=== PATIENT | male | born 1970 | race Hispanic/Latino ===

== ENCOUNTER 2021-07-13 21:53 | Inpatient (IN) | payer SELFPAY ==
[2021-07-14] MEDS ORDERED: INSULIN REGULAR, HUMAN 100 UNITS/1 ML IV STA (04:51)
[2021-07-14] MEDS ORDERED: SODIUM CHLORIDE 0.9% 1000 ML 1,000 ML IV ONE ×3 (04:51→06:34)
[2021-07-14 05:15] LABS: Hematocrit 44.9 % (35.5-45.6); Hemoglobin 15.2 gm/dl (11.8-15.2); Mean Corpuscular HGB Conc 34 % (32-34); Mean Corpuscular Volume 91 fl (84-94); Platelet Count 240 K/mm3 (140-440); Red Blood Count 4.92 M/mm3 (3.65-5.03); Red Cell Distribution Width 14.2 % (13.2-15.2)
[2021-07-14 05:49] LABS: Alanine Aminotransferase 16 units/L (7-56); Albumin 3.9 g/dL (3.9-5); BUN/Creatinine Ratio 17; Blood Urea Nitrogen 20 mg/dL (9-20); Calcium 8.7 mg/dL (8.4-10.2); Hemolysis Index 2
[2021-07-14] MEDS ORDERED: DEXTROSE 50% IN WATER (25GM) 50 ML SYRINGE IV PRN ×2 (06:20→06:34)
--- NOTE | 2021-07-14 06:26 | Emergency Department Report ---
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 Ports no fever, chills, sweats. No hemoptysis hematemesis hematochezia, no chest pain no palpitations. -: Gradual Radiation: non-radiation Consistency: constant Improves with: none Worsens with: none Associated Symptoms: denies other symptoms, malaise, nausea/vomiting, weakness. denies: chest pain, cough, rash, seizure, shortness of breath Treatments Prior to Arrival: none - Related Data Allergies Allergy/AdvReac Type Severity Reaction Status Date / Time No Known Allergies Allergy Verified 07/14/21 06:27 ED Review of Systems Comment: All other systems reviewed and negative ED Past Medical Hx - Past Medical History Previous Medical History?: Yes Hx Diabetes: Yes - Surgical History Past Surgical History?: No ED Physical Exam - General Limitations: No Limitations General appearance: alert, in no apparent distress - Head Head exam: Present: atraumatic, normocephalic - Eye Eye exam: Present: normal appearance - ENT ENT exam: Present: mucous membranes moist - Neck Neck exam: Present: normal inspection - Respiratory Respiratory exam: Present: normal lung sounds bilaterally, wheezes (Occasionally). Absent: respiratory distress - Cardiovascular Cardiovascular Exam: Present: regular rate, normal rhythm. Absent: systolic murmur, diastolic murmur, rubs, gallop - GI/Abdominal GI/Abdominal exam: Present: soft, normal bowel sounds - Rectal Rectal exam: Present: deferred - Extremities Exam Extremities exam: Present: normal inspection - Back Exam Back exam: Present: normal inspection. Absent: CVA tenderness (R), CVA tenderness (L) - Neurological Exam Neurological exam: Present: alert, oriented X3, CN II-XII intact - Psychiatric Psychiatric exam: Present: normal affect, normal mood. Absent: anxious, flat affect - Skin Skin exam: Present: warm, dry, intact, normal color. 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 He was found to have elevated blood sugar of nearly 500 was treated accordingly with IV insulin in conjunction with IV fluids x2L. His anion gap was found to be in excess of 30 with a CO2 that supports metabolic acidosis. Urinalysis and not yet resulted but the finding seems to support diabetic ketoacidosis. Case was called and attempted to be discussed with Dr. Koch who advised that we pass it on to the oncoming shift around 730 attending was notified ED Disposition Clinical Impression: Metabolic acidosis, Hyperglycemia due to diabetes mellitus, DKA (diabetic ketoacidosis), Bacteriuria with pyuria Disposition: 09 ADMITTED INPATIENT Is pt being admited?: Yes Does the pt Need Aspirin: No Condition: Fair Instructions: Diabetic Ketoacidosis (ED), Diabetes Mellitus Type 2 in Adults (ED) Referrals: ZEINAB GODINEZ MD [Primary Care Provider] - 3-5 Days <SYDNEY INIGUEZ - Last Filed: 07/14/21 07:31> ED Review of Systems ROS: Stated complaint: HIGH BLOOD SUGAR Other details as noted in HPI ED Course Vital Signs 07/13/21 22:01 Temperature 98.1 F Pulse Rate 76 Respiratory 18 Rate Blood Pressure 137/76 [Right] O2 Sat by Pulse 97 Oximetry - Reevaluation(s) Reevaluation #1: 07/14/21 07:23 The patient is a 50-year-old gentleman who is visiting from [place], who is noncompliant with diabetic therapy, presenting with a complaint of polyuria, polydipsia, malaise, and fatigue. He is found to have diabetic ketoacidosis. He meets criteria for admission hospitalization secondary to the aforementioned. Start fluids, insulin drip, insulin bolus ordered by physician certified ophthalmic assistant. Contacted critical care physician on-call, Dr. Leon, discussed the patient's history, physical, laboratory studies and clinical impression. She will follow in consultation, and agrees with placement to the intensive care unit. The patient is agreeable to admission hospitalization. All questions answered. Hospital physician, to admit to [facility] Reevaluation #2: 07/14/21 07:31 Dr Debbie Casas to admit to [facility] ED Medical Decision Making - Lab Data Result diagrams: 07/14/21 04:58 07/14/21 04:58 Vital Signs 07/13/21 22:01 Temperature 98.1 F Pulse Rate 76 Respiratory 18 Rate Blood Pressure 137/76 [Right] O2 Sat by Pulse 97 Oximetry Lab Results 07/14/21 07/14/21 07/14/21 Range/Units 04: 04:58 04:58 WBC 14.3 H (4.5-11.0) K/mm3 RBC 4.92 (3.65-5.03) M/mm3 Hgb 15.2 (11.8-15.2) gm/dl Hct 44.9 (35.5-45.6) % MCV 91 (84-94) fl MCH 31 (28-32) pg MCHC 34 (32-34) % RDW 14.2 (13.2-15.2) % Plt Count 240 (140-440) K/mm3 VBG pH (7.320-7.420) Sodium (137-145) mmol/L Potassium (3.6-5.0) mmol/L Chloride (98-107) mmol/L Carbon Dioxide (22-30) mmol/L Anion Gap mmol/L BUN (9-20) mg/dL Creatinine (0.8-1.3) mg/dL Estimated GFR ml/min BUN/Creatinine Ratio % Glucose (75-100) mg/dL POC Glucose 436 H (70-105) mg/dL Calcium (8.4-10.2) mg/dL Phosphorus 3.40 (2.5-4.5) mg/dL Magnesium 2.00 (1.7-2.3) mg/dL Total Bilirubin (0.1-1.2) mg/dL AST (5-40) units/L ALT (7-56) units/L Alkaline Phosphatase (35-129) units/L Total Protein (6.3-8.2) g/dL Albumin (3.9-5) g/dL Albumin/Globulin Ratio % 07/14/21 07/14/21 Range/Units 04:58 04:58 WBC (4.5-11.0) K/mm3 RBC (3.65-5.03) M/mm3 Hgb (11.8-15.2) gm/dl Hct (35.5-45.6) % MCV (84-94) fl MCH (28-32) pg MCHC (32-34) % RDW (13.2-15.2) % Plt Count (140-440) K/mm3 VBG pH 7.287 L (7.320-7.420) Sodium 125 L (137-145) mmol/L Potassium 3.8 (3.6-5.0) mmol/L Chloride 84.8 L (98-107) mmol/L Carbon Dioxide 11 L (22-30) mmol/L Anion Gap 33 mmol/L BUN 20 (9-20) mg/dL Creatinine 1.2 (0.8-1.3) mg/dL Estimated GFR > 60 ml/min BUN/Creatinine Ratio 17 % Glucose 432 H (75-100) mg/dL POC Glucose (70-105) mg/dL Calcium 8.7 (8.4-10.2) mg/dL Phosphorus (2.5-4.5) mg/dL Magnesium (1.7-2.3) mg/dL Total Bilirubin 0.60 (0.1-1.2) mg/dL AST 12 (5-40) units/L ALT 16 (7-56) units/L Alkaline Phosphatase 97 (35-129) units/L Total Protein 6.8 (6.3-8.2) g/dL Albumin 3.9 (3.9-5) g/dL Albumin/Globulin Ratio 1.3 % - EKG Data -: EKG Interpreted by [place] EKG shows normal: sinus rhythm Rate: tachycardia - EKG Data When compared to previous EKG there are: previous EKG unavailable 07/14/21 07:22 The EKG is interpreted at 06: 47 Sinus rhythm, rate 102 bpm. Left axis deviation, left anterior fascicular block, poor R wave progression, QTC 4 4 3 ms, and motion artifact. This is an abnormal EKG. This is not a STEMI - Radiology Data Radiology results: pending, report reviewed, image reviewed CHEST 1 VIEW INDICATION / CLINICAL INFORMATION: wheeze. Cough FINDINGS: S UPPORT DEVICES: None. HEART / MEDIASTINUM: No significant abnormality. LUNGS / PLEURA: No significant pulmonary or pleural abnormality. No pneumothorax. ADDITIONAL FINDINGS: No significant additional findings. IMPRESSION: 1. No acute findings. Signer Name: Justin Portillo MD Signed: 07/14/2021 5:49 AM Workstation Name: [employer] Critical Care Time: Yes Critical care time in (mins) excluding proc time.: 35 Critical care attestation.: If time is entered above; I have spent that time in minutes in the direct care of this critically ill patient, excluding procedure time. ED Disposition Is pt being admited?: Yes Does the pt Need Aspirin: No
--- NOTE | 2021-07-14 06:54 | XRay Report ---
CHEST 1 VIEW INDICATION / CLINICAL INFORMATION: wheeze. Cough FINDINGS: SUPPORT DEVICES: None. HEART / MEDIASTINUM: No significant abnormality. LUNGS / PLEURA: No significant pulmonary or pleural abnormality. No pneumothorax. ADDITIONAL FINDINGS: No significant additional findings. IMPRESSION: 1. No acute findings. Signer Name: Justin Portillo MD Signed: 07/14/2021 6:49 AM Workstation Name: [id number]
[2021-07-14 06:57] LABS: Bacteria,Urine 1+ /HPF (Negative); Bilirubin,Urine NEG (Negative); Blood,Urine MOD (Negative); Color,Urine Straw (Yellow); Mucus,Urine FEW /HPF; Protein,Urine <15 mg/dL mg/dL (Negative); Urobilinogen,Urine < 2.0 mg/dL (<2.0)
[2021-07-14] MEDS ORDERED: INSULIN REGULAR, HUMAN 100 UNITS in SODIUM CHLORIDE 0.9% 99 ML IV SCH (07:00)
[2021-07-14] MEDS ORDERED: NITROFURANTOIN MONOHYD/M-CRYST 100 MG CAP PO ONE (07:24)
[2021-07-14] MEDS ORDERED: SODIUM CHLORIDE 0.9% 1000 ML 2,000 ML IV ONE (08:07)
--- NOTE | 2021-07-14 08:11 | History and Physical Report ---
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 He also has a chronic history of abdominal pain which he says has been going on for years. He denies any prior surgeries denies any recent hospitalization but tells me that many years ago he did have an event such as this was also secondary to lack of insulin. The abdominal pain he says has been getting worse in the last 2 weeks and recently 4/10 in intensity. He says is crampy Past History Past Medical History: diabetes, hypertension, hyperlipidemia Past Surgical History: No surgical history Social history: no significant social history Family history: no significant family history Medications and Allergies Allergies Allergy/AdvReac Type Severity Reaction Status Date / Time No Known Allergies Allergy Verified 07/14/21 06:27 Active Meds: Active Medications Acetaminophen (Acetaminophen 325 Mg Tab) 650 mg PO Q6H PRN PRN Reason: Pain MILD(1-3)/Fever >100.5/VILLEDA Dextrose (Dextrose 50% In Water (25gm) 50 Ml Syringe) 0 ml IV Q30MIN PRN; Protocol PRN Reason: Hypoglycemia Heparin Sodium (Porcine) (Heparin 5,000 Unit/1 Ml Vial) 5,000 unit SUB-Q Q8HR DESTINI Insulin Human Regular 100 (units/ Sodium Chloride) 100 mls @ 1 mls/hr IV TITR DESTINI; Protocol Potassium Chloride/Dextrose/Sod Cl (D5w/0.45% Nacl/Kcl 20 Meq) 20 meq in 1,000 mls @ 125 mls/hr IV DIRECT DESTINI Sodium Chloride (Nacl 0.9% 1000 Ml) 2,000 mls @ 999 mls/hr IV BOLUS ONE Stop: 07/14/21 10:07 Morphine Sulfate (Morphine 2 Mg/1 Ml Inj) 2 mg IV Q4H PRN PRN Reason: Pain, Moderate (4-6) Naloxone HCl (Naloxone 0.4 Mg/1 Ml Inj) 0.1 mg IV Q2MIN PRN PRN Reason: Res Rate </= 8 or 02 SAT < 92% Ondansetron HCl (Ondansetron 4 Mg/2 Ml Inj) 4 mg IV Q4H PRN PRN Reason: Nausea And Vomiting Sodium Chloride (Sodium Chloride 0.9% 10 Ml Flush Syringe) 10 ml IV PRN PRN PRN Reason: LINE FLUSH Sodium Chloride (Sodium Chloride 0.9% 10 Ml Flush Syringe) 10 ml IV BID DESTINI Sodium Chloride (Sodium Chloride 0.9% 10 Ml Flush Syringe) 10 ml IV PRN PRN PRN Reason: LINE FLUSH Review of Systems All systems: negative Constitutional: weight gain, fatigue, weakness, lethargy, no weight loss, no fever, no chills, no sweats, no malaise Cardiovascular: no chest pain, no orthopnea, no palpitations, no rapid/irregular heart beat, no edema, no syncope, no shortness of breath Respiratory: no cough, no excessive sputum, no shortness of breath Gastrointestinal: nausea, vomiting, no abdominal pain, no diarrhea, no constipation, no hematemesis Genitourinary Male: other (Pyuria), no hematuria, no flank pain, no discharge Exam - Physical Exam Narrative exam: VITAL SIGNS: Reviewed. GENERAL: The patient appears normally developed, Vital signs as documented. HEAD: No signs of head trauma. EYES: Pupils are equal. Extraocular motions intact. EARS: Hearing grossly intact. MOUTH: Oropharynx is normal. NECK: No adenopathy, no JVD. CHEST: Chest with clear breath sounds bilaterally. No wheezes, rales, or rhonchi. CARDIAC: Regular rate and rhythm. S1 and S2, without murmurs, gallops, or rubs. VASCULAR: No Edema. Peripheral pulses normal and equal in all extremities. ABDOMEN: Soft, large pannus, mild discomfort on palpation of the bilateral lower quadrant and non distended. No rebound or guarding, and no masses palpated. Bowel Sounds normal. MUSCULOSKELETAL: Good range of motion of all major joints. Extremities without clubbing, cyanosis or edema. NEUROLOGIC EXAM: Alert and oriented x 3 No focal sensory or strength deficits. Speech normal. Follows commands. PSYCHIATRIC: Mood normal. SKIN: detail exam as documented in skin assessment - Constitutional Vitals: Temp Pulse Resp BP Pulse Ox 98.1 F 76 18 137/76 97 07/13/21 22:01 07/13/21 22:01 07/13/21 22:01 07/13/21 22:01 07/13/21 22:01 Results - Labs CBC & Chem 7: 07/14/21 04:58 07/14/21 08:43 Labs: Laboratory Last Values WBC 14.3 K/mm3 (4.5-11.0) H 07/14/21 04:58 RBC 4.92 M/mm3 (3.65-5.03) 07/14/21 04:58 Hgb 15.2 gm/dl (11.8-15.2) 07/14/21 04:58 Hct 44.9 % (35.5-45.6) 07/14/21 04:58 MCV 91 fl (84-94) 07/14/21 04:58 MCH 31 pg (28-32) 07/14/21 04:58 MCHC 34 % (32-34) 07/14/21 04:58 RDW 14.2 % (13.2-15.2) 07/14/21 04:58 Plt Count 240 K/mm3 (140-440) 07/14/21 04:58 VBG pH 7.287 (7.320-7.420) L 07/14/21 04:58 Sodium 125 mmol/L (137-145) L 07/14/21 04:58 Potassium 3.8 mmol/L (3.6-5.0) 07/14/21 04:58 Chloride 84.8 mmol/L (98-107) L 07/14/21 04:58 Carbon Dioxide 11 mmol/L (22-30) L 07/14/21 04:58 Anion Gap 33 mmol/L 07/14/21 04:58 BUN 20 mg/dL (9-20) 07/14/21 04:58 Creatinine 1.2 mg/dL (0.8-1.3) 07/14/21 04:58 Estimated GFR > 60 ml/min 07/14/21 04:58 BUN/Creatinine Ratio 17 % 07/14/21 04:58 Glucose 432 mg/dL (75-100) H 07/14/21 04:58 POC Glucose 436 mg/dL (70-105) H 07/14/21 04:22 Hemoglobin A1c 13.5 % (4-6) H 07/14/21 07:09 Calcium 8.7 mg/dL (8.4-10.2) 07/14/21 04:58 Phosphorus 3.40 mg/dL (2.5-4.5) 07/14/21 04:58 Magnesium 2.00 mg/dL (1.7-2.3) 07/14/21 04:58 Total Bilirubin 0.60 mg/dL (0.1-1.2) 07/14/21 04:58 AST 12 units/L (5-40) 07/14/21 04:58 ALT 16 units/L (7-56) 07/14/21 04:58 Alkaline Phosphatase 97 units/L (35-129) 07/14/21 04:58 Total Protein 6.8 g/dL (6.3-8.2) 07/14/21 04:58 Albumin 3.9 g/dL (3.9-5) 07/14/21 04:58 Albumin/Globulin Ratio 1.3 % 07/14/21 04:58 Urine Color Straw (Yellow) 07/14/21 06:36 Urine Turbidity Clear (Clear) 07/14/21 06:36 Urine pH 5.0 (5.0-7.0) 07/14/21 06:36 Ur Specific [place] 1.022 (1.003-1.030) 07/14/21 06:36 Urine Protein <15 mg/dl mg/dL (Negative) 07/14/21 06:36 Urine Glucose (UA) >=500 mg/dL (Negative) 07/14/21 06:36 Urine Ketones 80 mg/dL (Negative) 07/14/21 06:36 Urine Blood Mod (Negative) 07/14/21 06:36 Urine Nitrite Neg (Negative) 07/14/21 06:36 Urine Bilirubin Neg (Negative) 07/14/21 06:36 Urine Urobilinogen < 2.0 mg/dL (<2.0) 07/14/21 06:36 Ur Leukocyte Esterase Sm (Negative) 07/14/21 06:36 Urine WBC (Auto) 59.0 /HPF (0.0-6.0) H 07/14/21 06:36 Urine RBC (Auto) 2.0 /HPF (0.0-6.0) 07/14/21 06:36 Urine Bacteria (Auto) 1+ /HPF (Negative) 07/14/21 06:36 Urine Mucus Few /HPF 07/14/21 06:36 Assessment and Plan Assessment and plan: Patient is a 50-year-old male with a history of diabetes mellitus 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 He also has a chronic history of abdominal pain which he says has been going on for years. He denies any prior surgeries denies any recent hospitalization but tells me that many years ago he did have an event such as this was also secondary to lack of insulin. The abdominal pain he says has been getting worse in the last 2 weeks and recently 4/10 in intensity. He says is crampy Chest x-ray. No acute pathology noted Sinus rhythm, rate 102 bpm. Left axis deviation, left anterior fascicular block, poor R wave progression, QTC 4 4 3 ms, and motion artifact. This is an abnormal EKG. 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 The aggregate critical care time was [90] minutes. This time is in addition to time spent performing reported procedures but includes the following: [x] Data Review and interpretation [x] Patient assessment and monitoring of vital signs [x] Documentation [x] Medication orders and management Advance Directives: Yes Plan of care discussed with patient/family: Yes
--- NOTE | 2021-07-14 08:31 | Consultation ---
History of Present Illness Consult date: 07/14/21 Requesting physician: DOLLY FRANKLIN Reason for consult: other (DKA) Medications and Allergies Allergies Allergy/AdvReac Type Severity Reaction Status Date / Time No Known Allergies Allergy Verified 07/14/21 06:27 Active Meds: Active Medications Acetaminophen (Acetaminophen 325 Mg Tab) 650 mg PO Q6H PRN PRN Reason: Pain MILD(1-3)/Fever >100.5/VILLEDA Dextrose (Dextrose 50% In Water (25gm) 50 Ml Syringe) 0 ml IV Q30MIN PRN; Protocol PRN Reason: Hypoglycemia Heparin Sodium (Porcine) (Heparin 5,000 Unit/1 Ml Vial) 5,000 unit SUB-Q Q8HR DESTINI Insulin Human Regular 100 (units/ Sodium Chloride) 100 mls @ 1 mls/hr IV TITR DESTINI; Protocol Potassium Chloride/Dextrose/Sod Cl (D5w/0.45% Nacl/Kcl 20 Meq) 20 meq in 1,000 mls @ 125 mls/hr IV DIRECT DESTINI Sodium Chloride (Nacl 0.9% 1000 Ml) 2,000 mls @ 999 mls/hr IV BOLUS ONE Stop: 07/14/21 10:07 Morphine Sulfate (Morphine 2 Mg/1 Ml Inj) 2 mg IV Q4H PRN PRN Reason: Pain, Moderate (4-6) Naloxone HCl (Naloxone 0.4 Mg/1 Ml Inj) 0.1 mg IV Q2MIN PRN PRN Reason: Res Rate </= 8 or 02 SAT < 92% Ondansetron HCl (Ondansetron 4 Mg/2 Ml Inj) 4 mg IV Q4H PRN PRN Reason: Nausea And Vomiting Sodium Chloride (Sodium Chloride 0.9% 10 Ml Flush Syringe) 10 ml IV PRN PRN PRN Reason: LINE FLUSH Sodium Chloride (Sodium Chloride 0.9% 10 Ml Flush Syringe) 10 ml IV BID DESTINI Sodium Chloride (Sodium Chloride 0.9% 10 Ml Flush Syringe) 10 ml IV PRN PRN PRN Reason: LINE FLUSH Physical Examination Vital signs: Vital Signs Temp Pulse Resp BP Pulse Ox 98.1 F 76 18 137/76 97 07/13/21 22:01 07/13/21 22:01 07/13/21 22:01 07/13/21 22:01 07/13/21 22:01 Results - Laboratory Findings CBC and BMP: 07/14/21 04:58 07/14/21 04:58 Abnormal lab findings: Abnormal Labs 07/14/21 07/14/21 07/14/21 04:22 04:58 04:58 WBC 14.3 H VBG pH Sodium 125 L Chloride 84.8 L Carbon Dioxide 11 L Glucose 432 H POC Glucose 436 H Hemoglobin A1c Urine WBC (Auto) 07/14/21 07/14/21 07/14/21 04:58 06:36 07:09 WBC VBG pH 7.287 L Sodium Chloride Carbon Dioxide Glucose POC Glucose Hemoglobin A1c 13.5 H Urine WBC (Auto) 59.0 H
[2021-07-14 08:35] LABS: Calcium 8.8 mg/dL (8.4-10.2)
[2021-07-14 08:44] LABS: BUN/Creatinine Ratio 15; Blood Urea Nitrogen 18 mg/dL (9-20); Calcium 8.7 mg/dL (8.4-10.2); Hemolysis Index 21
[2021-07-14] MEDS ORDERED: ONDANSETRON 4 MG/2 ML INJ IV PRN (09:00)
[2021-07-14] MEDS ORDERED: NALOXONE 0.4 MG/1 ML INJ IV PRN (09:00)
[2021-07-14] MEDS: INSULIN REGULAR, HUMAN 100 UNITS in SODIUM CHLORIDE 0.9% 99 ML IV SCH ×2 (09:14→22:07)
[2021-07-14 09:37] LABS: BUN/Creatinine Ratio 15; Blood Urea Nitrogen 17 mg/dL (9-20); Calcium 8.5 mg/dL (8.4-10.2); Hemolysis Index 6
--- NOTE | 2021-07-14 14:14 | Cat Scan Report ---
CT ABDOMEN AND PELVIS WITHOUT CONTRAST INDICATION / CLINICAL INFORMATION: abdominal pain. TECHNIQUE: Axial CT images were obtained through the abdomen and pelvis without IV contrast. Sagittal and schmitz l reformatted images. All CT scans at this location are performed using CT dose reduction for ALARA b y means of automated exposure control. COMPARISON: None available. FINDINGS: LOWER CHEST: No significant abnormality. LIVER: No significant abnormality. GALLBLADDER: No significant abnormality. BILE DUCTS: No significant abnormality. PANCREAS: No significant abnormality. SPLEEN: No significant abnormality. ADRENALS: No significant abnormality. RIGHT KIDNEY and URETER: There is a large cyst at the superior pole measuring 11.6 cm. There are 5-6 calyceal stones in the right kidney with the largest measuring 1.4 cm near mid pole. A 1.8 x 0.9 cm s tone is identified in the right renal pelvis. There is mild pyelocaliectasis in the superior right ki dney. The right ureter is unremarkable. No ureteral stones are appreciated. LEFT KIDNEY and URETER: No significant abnormality. STOMACH and SMALL BOWEL: No significant abnormality. COLON: No significant abnormality. APPENDIX: No significant abnormality. PERITONEUM: No free fluid. No free air. No fluid collection. LYMPH NODES: No significant adenopathy. AORTA and ARTERIES: No significant abnormality. IVC and VEINS: No significant abnormality. URINARY BLADDER: No significant abnormality. REPRODUCTIVE ORGANS: No significant abnormality. ADDITIONAL FINDINGS: None. SKELETAL SYSTEM: No significant abnormality. IMPRESSION: Right nephrolithiasis as described above. There is mild pyelocaliectasis in the superior calyces of t he right kidney. Large right renal cyst. No ureteral stones are detected. Signer Name: Álvaro Merrill Jr, MD Signed: 07/14/2021 2:10 PM Workstation Name: [id number]
[2021-07-14 19:22] LABS: BUN/Creatinine Ratio 14; Blood Urea Nitrogen 14 mg/dL (9-20); Calcium 8.2 mg/dL (8.4-10.2); Hemolysis Index 6
[2021-07-14] MEDS: CEFEPIME/NS 1 GM/100 ML 1 GM/100 ML BAG IV SCH ×2 (22:18→23:32)
[2021-07-14] MEDS: D5W/0.45% NACL/KCL 20 MEQ 20 MEQ/1,000 ML BAG IV SCH (23:04)
[2021-07-14] MEDS: HEPARIN 5,000 UNIT/1 ML VIAL SUB-Q SCH (23:32)
[2021-07-15 00:02] LABS: BUN/Creatinine Ratio 14; Blood Urea Nitrogen 15 mg/dL (9-20); Calcium 8.3 mg/dL (8.4-10.2); Hemolysis Index 10
[2021-07-15] MEDS ORDERED: SODIUM PHOSPHATE 30 MMOL in SODIUM CHLORIDE 0.9% 500 ML 500 ML IV ONE (01:18)
[2021-07-15] MEDS: INSULIN REGULAR, HUMAN 100 UNITS in SODIUM CHLORIDE 0.9% 99 ML IV SCH (02:12)
[2021-07-15] MEDS: MORPHINE 2 MG/1 ML INJ IV PRN ×2 (04:56→13:06)
[2021-07-15] MEDS: HEPARIN 5,000 UNIT/1 ML VIAL SUB-Q SCH ×2 (05:00→13:07)
[2021-07-15] MEDS: CEFEPIME/NS 1 GM/100 ML 1 GM/100 ML BAG IV SCH ×2 (05:01→13:05)
[2021-07-15 05:32] LABS: Hematocrit 40.5 % (35.5-45.6); Hemoglobin 13.6 gm/dl (11.8-15.2); Mean Corpuscular HGB Conc 34 % (32-34); Mean Corpuscular Volume 90 fl (84-94); Platelet Count 224 K/mm3 (140-440)
[2021-07-15 05:49] LABS: Alanine Aminotransferase 15 units/L (7-56); Albumin 2.8 g/dL (3.9-5); BUN/Creatinine Ratio 14; Blood Urea Nitrogen 14 mg/dL (9-20); Calcium 8.2 mg/dL (8.4-10.2); Hemolysis Index 10
[2021-07-15] MEDS: D5W/0.45% NACL/KCL 20 MEQ 20 MEQ/1,000 ML BAG IV SCH (06:13)
[2021-07-15 06:46] LABS: Basophils % (Manual) 0 % (0.0-1.8); Eosinophils % (Manual) 0 % (0.0-4.3); Platelet Estimate Consistent w Auto; RBC Morphology Normal; Total Cells Counted 100
[2021-07-15] MEDS: ACETAMINOPHEN 325 MG TAB PO PRN ×2 (07:59→17:05)
[2021-07-15] MEDS ORDERED: SODIUM CHLORIDE 0.9% 1000 ML 1,000 ML IV ONE ×2 (08:00→10:20)
[2021-07-15 09:41] LABS: BUN/Creatinine Ratio 15; Blood Urea Nitrogen 12 mg/dL (9-20); Calcium 8.6 mg/dL (8.4-10.2); Hemolysis Index 6
[2021-07-15] MEDS ORDERED: INSULIN GLARGINE 100 UNITS/ML SUB-Q NR (10:07)
[2021-07-15] MEDS ORDERED: POTASSIUM CHLORIDE 20 MEQ PACKET FEEDTUBE NR (10:08)
--- NOTE | 2021-07-15 10:19 | Progress Note ---
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 Patient with mild nausea and abdominal pain. Patient voiced that he might be constipated. Plan to transition to subQ insulin today if patient tolerate diet. BR regimen added for constipation, continue PRN antiemetic for N/V. Patient is also febrile this am, TMAX 101.9. Patient is still on emperic IV Abx for possible UTI, Leukocytosis improved and urine culture pending. Orders placed for blood cultures and continue IV Abx for now. Consider ID consult if fevers and leukocytosis persist. Assessment and Plan #DKA (diabetic ketoacidosis) #Metabolic Acidosis #Uncontrolled Diabetes Mellitus - Presented with elevated BG and metabolic acidosis - HgbA1C 13.5 - Non compliant with medications, ran out of insulin X2 weeks ago - DKA protcol was initiated - BG and Anion gap improved this am - Will transition to SubQ insulin - Consistent carb diet ordered - BG check and SSI ACHS - Monitor and replace electrolytes as needed - Monitor anion gap, serial Labs ordered - Diabetic education provided - Extensive conversation with patient on medication compliance and timing of medication considering his profession - CCM consulted, appreciate recommendations #Chronic Abdominal Pain #Constipation #Nausea, no vomiting - Chronic history of abdominal pain which he says has been going on for years - CT abd/Pelvis with right nephrolithiasis, mild pyelocaliectasis in the superior calyces of the right kidney. Large right renal cyst. No ureteral stones are detected. - Most likely related to DKA versus nephrolithiasis - S/p multiple IVF boluses and IVF resuscitation per DKA protocol - Pain subsided this am, patient thinks he might also be constipated - Bowel regimen added - Continue PRN antiemetic for N/V - PRN analgesia for pain management #SIRS #Pyuria with Bacteriuria #Leukocytosis - UA remarkable with elevated WBCs, leukocytosis - CT Abd/Pelvis with right nephrolithiasis, no stones detected - Urine culture is pending - Febrile today with persistent leukocytsosis - Blood cultures ordered - Continue emperic IV Abx for now - F/U on cultures - Daily CBC monitor - Consider ID consult if fevers and leukocytosis persist #Hyponatremia #Hypokalemia - s/p IVF ressucitation - K repleted - Monitor and replace electrolytes as needed - Trend BMP, mag, and phosp #GI/DVT Prophylaxis - PPI- Pepcid - Continue AC- Hep SubQ - SCDs to bilateral lower extremities while in bed The high probability of a clinically significant, sudden or life threatening deterioration of the [multiple] system(s) required my full and direct attention, intervention and personal management. The aggregate critical care time was [60] minutes. This time is in addition to time spent performing reported procedures but includes the following: [x] Data Review and interpretation [x] Patient assessment and monitoring of vital signs [x] Documentation [x] Medication orders and management Disposition Plan: ICU Total Time Spent with Patient (Minutes): 60 History Interval history: Patient seen and examined at the bedside. Fully AAO, on RA, c/o of mild abdominal pain and nausea, per patient it is possible that he might be constipated. Patient is also Febrile this am, TMAX 101.9, VSS. JEFE overnight Hospitalist Physical - Constitutional Vitals: Temp Pulse Resp BP Pulse Ox 98.4 F 97 H 27 H 149/71 93 07/15/21 03:20 07/15/21 07:00 07/15/21 07:00 07/15/21 07:00 07/15/21 09:17 General appearance: Present: no acute distress, obese - EENT Eyes: Present: PERRL, EOM intact ENT: clear oral mucosa - Neck Neck: Present: normal ROM - Respiratory Respiratory effort: normal Respiratory: bilateral: diminished - Cardiovascular Rhythm: regular Heart Sounds: Present: S1 & S2 - Extremities Extremities: no ischemia, pulses intact, pulses symmetrical Extremity abnormal: edema - Peripheral Assessment Generalized Edema Type: Non-pitting Edema Degree: 1+ Capillary Refill: < 3 seconds Skin Temperature: Warm Peripheral Pulses: within normal limits - Abdominal General gastrointestinal: soft, normal bowel sounds, other (Obese) - Integumentary Integumentary: Present: clear, warm, dry - Psychiatric Psychiatric: appropriate mood/affect, cooperative - Neurologic Neurologic: CNII-XII intact, moves all extremities - Allied Health Allied health notes reviewed: nursing HEART Score - HEART Score Troponin: Troponin T < 0.010 ng/mL (0.00-0.029) 07/14/21 07:09 Results - Labs CBC & Chem 7: 07/15/21 04:30 07/15/21 11:05 Labs: Laboratory Last Values WBC 12.0 K/mm3 (4.5-11.0) H 07/15/21 04:30 RBC 4.50 M/mm3 (3.65-5.03) 07/15/21 04:30 Hgb 13.6 gm/dl (11.8-15.2) 07/15/21 04:30 Hct 40.5 % (35.5-45.6) 07/15/21 04:30 MCV 90 fl (84-94) 07/15/21 04:30 MCH 30 pg (28-32) 07/15/21 04:30 MCHC 34 % (32-34) 07/15/21 04:30 RDW 14.0 % (13.2-15.2) 07/15/21 04:30 Plt Count 224 K/mm3 (140-440) 07/15/21 04:30 Add Manual Diff Complete 07/15/21 04:30 Total Counted 100 07/15/21 04:30 Seg Neuts % (Manual) 82.0 % (40.0-70.0) H 07/15/21 04:30 Band Neutrophils % 0 % 07/15/21 04:30 Lymphocytes % (Manual) 11.0 % (13.4-35.0) L 07/15/21 04:30 Reactive Lymphs % (Man) 0 % 07/15/21 04:30 Monocytes % (Manual) 7.0 % (0.0-7.3) 07/15/21 04:30 Eosinophils % (Manual) 0 % (0.0-4.3) 07/15/21 04:30 Basophils % (Manual) 0 % (0.0-1.8) 07/15/21 04:30 Metamyelocytes % 0 % 07/15/21 04:30 Myelocytes % 0 % 07/15/21 04:30 Promyelocytes % 0 % 07/15/21 04:30 Blast Cells % 0 % 07/15/21 04:30 Nucleated RBC % Not Reportable 07/15/21 04:30 Seg Neutrophils # Man 9.8 K/mm3 (1.8-7.7) H 07/15/21 04:30 Band Neutrophils # 0.0 K/mm3 07/15/21 04:30 Lymphocytes # (Manual) 1.3 K/mm3 (1.2-5.4) 07/15/21 04:30 Abs React Lymphs (Man) 0.0 K/mm3 07/15/21 04:30 Monocytes # (Manual) 0.8 K/mm3 (0.0-0.8) 07/15/21 04:30 Eosinophils # (Manual) 0.0 K/mm3 (0.0-0.4) 07/15/21 04:30 Basophils # (Manual) 0.0 K/mm3 (0.0-0.1) 07/15/21 04:30 Metamyelocytes # 0.0 K/mm3 07/15/21 04:30 Myelocytes # 0.0 K/mm3 07/15/21 04:30 Promyelocytes # 0.0 K/mm3 07/15/21 04:30 Blast Cells # 0.0 K/mm3 07/15/21 04:30 WBC Morphology Not Reportable 07/15/21 04:30 Hypersegmented Neuts Not Reportable 07/15/21 04:30 Hyposegmented Neuts Not Reportable 07/15/21 04:30 Hypogranular Neuts Not Reportable 07/15/21 04:30 Smudge Cells Not Reportable 07/15/21 04:30 Toxic Granulation Not Reportable 07/15/21 04:30 Toxic Vacuolation Not Reportable 07/15/21 04:30 Dohle Bodies Not Reportable 07/15/21 04:30 Pelger-Huet Anomaly Not Reportable 07/15/21 04:30 Justin Rods Not Reportable 07/15/21 04:30 Platelet Estimate Consistent w auto 07/15/21 04:30 Clumped Platelets Not Reportable 07/15/21 04:30 Plt Clumps, EDTA Not Reportable 07/15/21 04:30 Large Platelets Not Reportable 07/15/21 04:30 Giant Platelets Not Reportable 07/15/21 04:30 Platelet Satelliting Not Reportable 07/15/21 04:30 Plt Morphology Comment Not Reportable 07/15/21 04:30 RBC Morphology Normal 07/15/21 04:30 Dimorphic RBCs Not Reportable 07/15/21 04:30 Polychromasia Not Reportable 07/15/21 04:30 Hypochromasia Not Reportable 07/15/21 04:30 Poikilocytosis Not Reportable 07/15/21 04:30 Anisocytosis Not Reportable 07/15/21 04:30 Microcytosis Not Reportable 07/15/21 04:30 Macrocytosis Not Reportable 07/15/21 04:30 Spherocytes Not Reportable 07/15/21 04:30 Pappenheimer Bodies Not Reportable 07/15/21 04:30 Sickle Cells Not Reportable 07/15/21 04:30 Target Cells Not Reportable 07/15/21 04:30 Tear Drop Cells Not Reportable 07/15/21 04:30 Ovalocytes Not Reportable 07/15/21 04:30 Helmet Cells Not Reportable 07/15/21 04:30 [place] Bodies Not Reportable 07/15/21 04:30 [place] Rings Not Reportable 07/15/21 04:30 [place] Cells Not Reportable 07/15/21 04:30 Bite Cells Not Reportable 07/15/21 04:30 Crenated Cell Not Reportable 07/15/21 04:30 Elliptocytes Not Reportable 07/15/21 04:30 Acanthocytes (Spur) Not Reportable 07/15/21 04:30 Rouleaux Not Reportable 07/15/21 04:30 Hemoglobin C Crystals Not Reportable 07/15/21 04:30 Schistocytes Not Reportable 07/15/21 04:30 Malaria parasites Not Reportable 07/15/21 04:30 Abdelrahman Bodies Not Reportable 07/15/21 04:30 Hem Pathologist Commnt No 07/15/21 04:30 VBG pH 7.287 (7.320-7.420) L 07/14/21 04:58 Sodium 135 mmol/L (137-145) L 07/15/21 09:11 Potassium 2.9 mmol/L (3.6-5.0) L* 07/15/21 09:11 Chloride 104.6 mmol/L (98-107) 07/15/21 09:11 Carbon Dioxide 17 mmol/L (22-30) L 07/15/21 09:11 Anion Gap 16 mmol/L 07/15/21 09:11 BUN 12 mg/dL (9-20) 07/15/21 09:11 Creatinine 0.8 mg/dL (0.8-1.3) 07/15/21 09:11 Estimated GFR > 60 ml/min 07/15/21 09:11 BUN/Creatinine Ratio 15 % 07/15/21 09:11 Glucose 149 mg/dL (75-100) H 07/15/21 09:11 POC Glucose 132 mg/dL (70-105) H 07/15/21 09:01 Hemoglobin A1c 13.5 % (4-6) H 07/14/21 07:09 Calcium 8.6 mg/dL (8.4-10.2) 07/15/21 09:11 Phosphorus 2.00 mg/dL (2.5-4.5) L D 07/15/21 04:30 Magnesium 2.00 mg/dL (1.7-2.3) 07/15/21 04:30 Total Bilirubin 0.40 mg/dL (0.1-1.2) 07/15/21 04:30 AST 14 units/L (5-40) 07/15/21 04:30 ALT 15 units/L (7-56) 07/15/21 04:30 Alkaline Phosphatase 80 units/L (35-129) 07/15/21 04:30 Troponin T < 0.010 ng/mL (0.00-0.029) 07/14/21 07:09 Total Protein 6.3 g/dL (6.3-8.2) 07/15/21 04:30 Albumin 2.8 g/dL (3.9-5) L 07/15/21 04:30 Albumin/Globulin Ratio 0.8 % 07/15/21 04:30 Urine Color Straw (Yellow) 07/14/21 06:36 Urine Turbidity Clear (Clear) 07/14/21 06:36 Urine pH 5.0 (5.0-7.0) 07/14/21 06:36 Ur Specific [place] 1.022 (1.003-1.030) 07/14/21 06:36 Urine Protein <15 mg/dl mg/dL (Negative) 07/14/21 06:36 Urine Glucose (UA) >=500 mg/dL (Negative) 07/14/21 06:36 Urine Ketones 80 mg/dL (Negative) 07/14/21 06:36 Urine Blood Mod (Negative) 07/14/21 06:36 Urine Nitrite Neg (Negative) 07/14/21 06:36 Urine Bilirubin Neg (Negative) 07/14/21 06:36 Urine Urobilinogen < 2.0 mg/dL (<2.0) 07/14/21 06:36 Ur Leukocyte Esterase Sm (Negative) 07/14/21 06:36 Urine WBC (Auto) 59.0 /HPF (0.0-6.0) H 07/14/21 06:36 Urine RBC (Auto) 2.0 /HPF (0.0-6.0) 07/14/21 06:36 Urine Bacteria (Auto) 1+ /HPF (Negative) 07/14/21 06:36 Urine Mucus Few /HPF 07/14/21 06:36 Microbiology: Microbiology 07/14/21 06:36 Urine,Clean Catch Urine Culture - Preliminary Active Medications - Current Medications Current Medications: Generic Name Dose Route Start Last Admin Trade Name Freq PRN Reason Stop Dose Admin Acetaminophen 650 mg 07/14/21 09:00 07/15/21 07:59 Acetaminophen 325 Mg Tab PO 650 mg Q6H PRN Administration Pain MILD(1-3)/Fever >100.5/VILLEDA Dextrose 0 ml 07/14/21 06:34 Dextrose 50% In Water (25gm) 50 Ml Syringe IV Q30MIN PRN Hypoglycemia Protocol Heparin Sodium (Porcine) 5,000 unit 07/14/21 14:00 07/15/21 05:00 Heparin 5,000 Unit/1 Ml Vial SUB-Q 5,000 unit Q8HR DESTINI Administration Insulin Human Regular 100 100 mls @ 1 mls/hr 07/14/21 07:00 07/15/21 09:02 units/ Sodium Chloride IV 07/15/21 12:00 6 units/hr TITR DESTINI 6 mls/hr Titration Protocol 1 UNITS/HR Potassium Chloride/Dextrose/Sod Cl 20 meq in 1,000 mls @ 125 mls/hr 07/14/21 07:00 07/15/21 06:13 D5w/0.45% Nacl/Kcl 20 Meq IV 07/15/21 10:30 125 mls/hr DIRECT DESTINI Administration Cefepime HCl 1 gm in 100 mls @ 200 mls/hr 07/14/21 13:00 07/15/21 05:01 Cefepime/Ns 1 Gm/100 Ml IV 200 mls/hr Q8H DESTINI Administration Protocol Potassium Chloride 10 meq in 100 mls @ 100 mls/hr 07/15/21 11:00 Kcl 10meq/100ml IV 07/15/21 12:59 Q1H DESTINI Insulin Glargine 30 units 07/15/21 10:07 Insulin Glargine 100 Units/Ml SUB-Q 07/15/21 10:08 ONCE ONE Morphine Sulfate 2 mg 07/14/21 09:00 07/15/21 04:56 Morphine 2 Mg/1 Ml Inj IV 2 mg Q4H PRN Administration Pain, Moderate (4-6) Naloxone HCl 0.1 mg 07/14/21 09:00 Naloxone 0.4 Mg/1 Ml Inj IV Q2MIN PRN Res Rate </= 8 or 02 SAT < 92% Ondansetron HCl 4 mg 07/14/21 09:00 Ondansetron 4 Mg/2 Ml Inj IV Q4H PRN Nausea And Vomiting Potassium Chloride 40 meq 07/15/21 10:08 Potassium Chloride 20 Meq Packet FEEDTUBE 07/15/21 10:09 ONCE ONE Sodium Chloride 10 ml 07/14/21 10:00 07/14/21 23:31 Sodium Chloride 0.9% 10 Ml Flush Syringe IV Not Given BID DESTINI Sodium Chloride 10 ml 07/14/21 08:02 Sodium Chloride 0.9% 10 Ml Flush Syringe IV PRN PRN LINE FLUSH Nutrition/Malnutrition Assess - Dietary Evaluation Nutrition/Malnutrition Findings: Nutrition Notes Start: 07/14/21 17:12 Freq: Status: Active Protocol: Document 07/14/21 17:12 JULISA (Rec: 07/14/21 17:21 JULISA [id number]) Nutrition Notes Need for Assessment generated from: MD Order,Education Initial or Follow up Brief Note Current Diagnosis Diabetes,Hypertension, Hyperlipidemia Other Pertinent Diagnosis DKA, UTI, Leukocytosis, Abdominal Pain, SIRS. Current Diet NPO (since 07/14 08:05). Height 5 ft 7 in Weight 108.862 kg [place] Body Weight (kg) 67.27 BMI 37.5 Weight change and time frame None provided at admission. Weight Status Obese Subjective/Other Information RD consult for nutrition education. Pt currently on NPO. Pt's HbA1c is @ 13.5 %, according to History & Physical notes. Pt is on Room Air, O2 saturation @ 97%, according to Vital Signs History notes. Pt still in critical condition , not a candidate for Nutrition Education at the time, will assess feasibility on F/U. Percent of energy/protein needs met: Pt currently on NPO. Nutrition Intervention Follow-Up By: 07/18/21 Additional Comments Nutrition education will be provided on F/U, if feasible. When pertinent, start monitoring food tolerance, %PO intake of meals, and BM. <DOLLY FRANKLIN - Last Filed: 07/16/21 07:06> Assessment and Plan Assessment and plan: I saw and evaluated the patient. I agree with the findings and the plan of care as documented in the Nurse Practitioner's~note, with the following corrections and additions. Hospitalist Physical - Constitutional Vitals: Temp Pulse Resp BP Pulse Ox 98.9 F 96 H 16 121/64 93 07/16/21 04:25 07/16/21 04:25 07/16/21 04:25 07/16/21 04:25 07/16/21 04:25 HEART Score - HEART Score Troponin: Troponin T < 0.010 ng/mL (0.00-0.029) 07/14/21 07:09 Results - Labs CBC & Chem 7: 07/15/21 04:30 07/15/21 11:05 Labs: Laboratory Last Values WBC 12.0 K/mm3 (4.5-11.0) H 07/15/21 04:30 RBC 4.50 M/mm3 (3.65-5.03) 07/15/21 04:30 Hgb 13.6 gm/dl (11.8-15.2) 07/15/21 04:30 Hct 40.5 % (35.5-45.6) 07/15/21 04:30 MCV 90 fl (84-94) 07/15/21 04:30 MCH 30 pg (28-32) 07/15/21 04:30 MCHC 34 % (32-34) 07/15/21 04:30 RDW 14.0 % (13.2-15.2) 07/15/21 04:30 Plt Count 224 K/mm3 (140-440) 07/15/21 04:30 Add Manual Diff Complete 07/15/21 04:30 Total Counted 100 07/15/21 04:30 Seg Neuts % (Manual) 82.0 % (40.0-70.0) H 07/15/21 04:30 Band Neutrophils % 0 % 07/15/21 04:30 Lymphocytes % (Manual) 11.0 % (13.4-35.0) L 07/15/21 04:30 Reactive Lymphs % (Man) 0 % 07/15/21 04:30 Monocytes % (Manual) 7.0 % (0.0-7.3) 07/15/21 04:30 Eosinophils % (Manual) 0 % (0.0-4.3) 07/15/21 04:30 Basophils % (Manual) 0 % (0.0-1.8) 07/15/21 04:30 Metamyelocytes % 0 % 07/15/21 04:30 Myelocytes % 0 % 07/15/21 04:30 Promyelocytes % 0 % 07/15/21 04:30 Blast Cells % 0 % 07/15/21 04:30 Nucleated RBC % Not Reportable 07/15/21 04:30 Seg Neutrophils # Man 9.8 K/mm3 (1.8-7.7) H 07/15/21 04:30 Band Neutrophils # 0.0 K/mm3 07/15/21 04:30 Lymphocytes # (Manual) 1.3 K/mm3 (1.2-5.4) 07/15/21 04:30 Abs React Lymphs (Man) 0.0 K/mm3 07/15/21 04:30 Monocytes # (Manual) 0.8 K/mm3 (0.0-0.8) 07/15/21 04:30 Eosinophils # (Manual) 0.0 K/mm3 (0.0-0.4) 07/15/21 04:30 Basophils # (Manual) 0.0 K/mm3 (0.0-0.1) 07/15/21 04:30 Metamyelocytes # 0.0 K/mm3 07/15/21 04:30 Myelocytes # 0.0 K/mm3 07/15/21 04:30 Promyelocytes # 0.0 K/mm3 07/15/21 04:30 Blast Cells # 0.0 K/mm3 07/15/21 04:30 WBC Morphology Not Reportable 07/15/21 04:30 Hypersegmented Neuts Not Reportable 07/15/21 04:30 Hyposegmented Neuts Not Reportable 07/15/21 04:30 Hypogranular Neuts Not Reportable 07/15/21 04:30 Smudge Cells Not Reportable 07/15/21 04:30 Toxic Granulation Not Reportable 07/15/21 04:30 Toxic Vacuolation Not Reportable 07/15/21 04:30 Dohle Bodies Not Reportable 07/15/21 04:30 Pelger-Huet Anomaly Not Reportable 07/15/21 04:30 Justin Rods Not Reportable 07/15/21 04:30 Platelet Estimate Consistent w auto 07/15/21 04:30 Clumped Platelets Not Reportable 07/15/21 04:30 Plt Clumps, EDTA Not Reportable 07/15/21 04:30 Large Platelets Not Reportable 07/15/21 04:30 Giant Platelets Not Reportable 07/15/21 04:30 Platelet Satelliting Not Reportable 07/15/21 04:30 Plt Morphology Comment Not Reportable 07/15/21 04:30 RBC Morphology Normal 07/15/21 04:30 Dimorphic RBCs Not Reportable 07/15/21 04:30 Polychromasia Not Reportable 07/15/21 04:30 Hypochromasia Not Reportable 07/15/21 04:30 Poikilocytosis Not Reportable 07/15/21 04:30 Anisocytosis Not Reportable 07/15/21 04:30 Microcytosis Not Reportable 07/15/21 04:30 Macrocytosis Not Reportable 07/15/21 04:30 Spherocytes Not Reportable 07/15/21 04:30 Pappenheimer Bodies Not Reportable 07/15/21 04:30 Sickle Cells Not Reportable 07/15/21 04:30 Target Cells Not Reportable 07/15/21 04:30 Tear Drop Cells Not Reportable 07/15/21 04:30 Ovalocytes Not Reportable 07/15/21 04:30 Helmet Cells Not Reportable 07/15/21 04:30 [place] Bodies Not Reportable 07/15/21 04:30 [place] Rings Not Reportable 07/15/21 04:30 [place] Cells Not Reportable 07/15/21 04:30 Bite Cells Not Reportable 07/15/21 04:30 Crenated Cell Not Reportable 07/15/21 04:30 Elliptocytes Not Reportable 07/15/21 04:30 Acanthocytes (Spur) Not Reportable 07/15/21 04:30 Rouleaux Not Reportable 07/15/21 04:30 Hemoglobin C Crystals Not Reportable 07/15/21 04:30 Schistocytes Not Reportable 07/15/21 04:30 Malaria parasites Not Reportable 07/15/21 04:30 Abdelrahman Bodies Not Reportable 07/15/21 04:30 Hem Pathologist Commnt No 07/15/21 04:30 VBG pH 7.287 (7.320-7.420) L 07/14/21 04:58 Sodium 136 mmol/L (137-145) L 07/15/21 11:05 Potassium 3.3 mmol/L (3.6-5.0) L 07/15/21 11:05 Chloride 103.8 mmol/L (98-107) 07/15/21 11:05 Carbon Dioxide 22 mmol/L (22-30) 07/15/21 11:05 Anion Gap 14 mmol/L 07/15/21 11:05 BUN 12 mg/dL (9-20) 07/15/21 11:05 Creatinine 1.0 mg/dL (0.8-1.3) 07/15/21 11:05 Estimated GFR > 60 ml/min 07/15/21 11:05 BUN/Creatinine Ratio 12 % 07/15/21 11:05 Glucose 138 mg/dL (75-100) H 07/15/21 11:05 POC Glucose 257 mg/dL (70-105) H 07/15/21 20:44 Hemoglobin A1c 13.5 % (4-6) H 07/14/21 07:09 Calcium 8.3 mg/dL (8.4-10.2) L 07/15/21 11:05 Phosphorus 2.10 mg/dL (2.5-4.5) L 07/15/21 11:05 Magnesium 1.90 mg/dL (1.7-2.3) 07/15/21 11:05 Total Bilirubin 0.40 mg/dL (0.1-1.2) 07/15/21 04:30 AST 14 units/L (5-40) 07/15/21 04:30 ALT 15 units/L (7-56) 07/15/21 04:30 Alkaline Phosphatase 80 units/L (35-129) 07/15/21 04:30 Troponin T < 0.010 ng/mL (0.00-0.029) 07/14/21 07:09 Total Protein 6.3 g/dL (6.3-8.2) 07/15/21 04:30 Albumin 2.8 g/dL (3.9-5) L 07/15/21 04:30 Albumin/Globulin Ratio 0.8 % 07/15/21 04:30 Urine Color Straw (Yellow) 07/14/21 06:36 Urine Turbidity Clear (Clear) 07/14/21 06:36 Urine pH 5.0 (5.0-7.0) 07/14/21 06:36 Ur Specific [place] 1.022 (1.003-1.030) 07/14/21 06:36 Urine Protein <15 mg/dl mg/dL (Negative) 07/14/21 06:36 Urine Glucose (UA) >=500 mg/dL (Negative) 07/14/21 06:36 Urine Ketones 80 mg/dL (Negative) 07/14/21 06:36 Urine Blood Mod (Negative) 07/14/21 06:36 Urine Nitrite Neg (Negative) 07/14/21 06:36 Urine Bilirubin Neg (Negative) 07/14/21 06:36 Urine Urobilinogen < 2.0 mg/dL (<2.0) 07/14/21 06:36 Ur Leukocyte Esterase Sm (Negative) 07/14/21 06:36 Urine WBC (Auto) 59.0 /HPF (0.0-6.0) H 07/14/21 06:36 Urine RBC (Auto) 2.0 /HPF (0.0-6.0) 07/14/21 06:36 Urine Bacteria (Auto) 1+ /HPF (Negative) 07/14/21 06:36 Urine Mucus Few /HPF 07/14/21 06:36 Microbiology: Microbiology 07/15/21 10:51 Peripheral/Venous Blood Culture - Preliminary Culture in Progress 07/15/21 10:45 Peripheral/Venous Blood Culture - Preliminary Culture in Progress 07/14/21 06:36 Urine,Clean Catch Urine Culture - Preliminary Prasad/IV: Voiding Method Toilet Active Medications - Current Medications Current Medications: Generic Name Dose Route Start Last Admin Trade Name Freq PRN Reason Stop Dose Admin Acetaminophen 650 mg 07/14/21 09:00 07/16/21 05:23 Acetaminophen 325 Mg Tab PO 650 mg Q6H PRN Administration Pain MILD(1-3)/Fever >100.5/VILLEDA Dextrose 50 ml 07/15/21 13:30 Dextrose 50% In Water (25gm) 50 Ml Syringe IV Q30MIN PRN Hypoglycemia Protocol Docusate Sodium 100 mg 07/15/21 22:00 07/16/21 00:18 Docusate Sodium 100 Mg Cap PO 100 mg BID DESTINI Administration Famotidine 20 mg 07/15/21 22:00 07/16/21 00:19 Famotidine 20 Mg Tab PO 20 mg QHS DESTINI Administration Heparin Sodium (Porcine) 5,000 unit 07/14/21 14:00 07/16/21 00:19 Heparin 5,000 Unit/1 Ml Vial SUB-Q 5,000 unit Q8HR DESTINI Administration Cefepime HCl 1 gm in 100 mls @ 200 mls/hr 07/14/21 13:00 07/16/21 05:26 Cefepime/Ns 1 Gm/100 Ml IV 200 mls/hr Q8H DESTINI Administration Protocol Insulin Glargine 35 units 07/16/21 08:00 Insulin Glargine 100 Units/Ml SUB-Q QAMDIAB [facility] Insulin Human Regular 0 units 07/15/21 16:30 07/16/21 00:30 Insulin Regular, Human 100 Units/1 Ml SUB-Q 6 units ACHS [facility] Administration Protocol Insulin Human Regular 8 units 07/15/21 16:30 07/15/21 16:14 Insulin Regular, Human 100 Units/1 Ml SUB-Q 8 units AC DESTINI Administration Morphine Sulfate 2 mg 07/14/21 09:00 07/15/21 13:06 Morphine 2 Mg/1 Ml Inj IV 2 mg Q4H PRN Administration Pain, Moderate (4-6) Naloxone HCl 0.1 mg 07/14/21 09:00 Naloxone 0.4 Mg/1 Ml Inj IV Q2MIN PRN Res Rate </= 8 or 02 SAT < 92% Ondansetron HCl 4 mg 07/14/21 09:00 07/15/21 12:12 Ondansetron 4 Mg/2 Ml Inj IV 4 mg Q4H PRN Administration Nausea And Vomiting Senna 17.2 mg 07/15/21 22:00 07/16/21 00:18 Sennosides 8.6 Mg Tab PO 17.2 mg QHS DESTINI Administration Sodium Chloride 10 ml 07/14/21 10:00 07/16/21 00:20 Sodium Chloride 0.9% 10 Ml Flush Syringe IV 10 ml BID DESTINI Administration Sodium Chloride 10 ml 07/14/21 08:02 Sodium Chloride 0.9% 10 Ml Flush Syringe IV PRN PRN LINE FLUSH Nutrition/Malnutrition Assess - Dietary Evaluation Nutrition/Malnutrition Findings: Nutrition Notes Start: 07/14/21 17:12 Freq: Status: Active Protocol: Document 07/14/21 17:12 JULISA (Rec: 07/14/21 17:21 JULISA [id number]) Nutrition Notes Need for Assessment generated from: MD Order,Education Initial or Follow up Brief Note Current Diagnosis Diabetes,Hypertension, Hyperlipidemia Other Pertinent Diagnosis DKA, UTI, Leukocytosis, Abdominal Pain, SIRS. Current Diet NPO (since 07/14 08:05). Height 5 ft 7 in Weight 108.862 kg [place] Body Weight (kg) 67.27 BMI 37.5 Weight change and time frame None provided at admission. Weight Status Obese Subjective/Other Information RD consult for nutrition education. Pt currently on NPO. Pt's HbA1c is @ 13.5 %, according to History & Physical notes. Pt is on Room Air, O2 saturation @ 97%, according to Vital Signs History notes. Pt still in critical condition , not a candidate for Nutrition Education at the time, will assess feasibility on F/U. Percent of energy/protein needs met: Pt currently on NPO. Nutrition Intervention Follow-Up By: 07/18/21 Additional Comments Nutrition education will be provided on F/U, if feasible. When pertinent, start monitoring food tolerance, %PO intake of meals, and BM.
[2021-07-15 11:18] LABS: BUN/Creatinine Ratio 12; Blood Urea Nitrogen 12 mg/dL (9-20); Calcium 8.3 mg/dL (8.4-10.2); Hemolysis Index 2
[2021-07-15] MEDS: POTASSIUM CHLORIDE 10 MEQ 10 MEQ/100 ML BAG IV SCH ×2 (11:21→12:17)
[2021-07-15] MEDS ORDERED: DEXTROSE 50% IN WATER (25GM) 50 ML SYRINGE IV PRN (13:30)
--- NOTE | 2021-07-15 14:18 | Progress Note ---
Subjective Date of service: 07/15/21 Objective Vital Signs - 12hr 07/15/21 07/15/21 07/15/21 03:00 03:20 04:00 Temperature 98.4 F Pulse Rate 99 H 99 H Pulse Rate [ 99 H From Monitor] Respiratory 28 H 18 Rate Blood Pressure 99/49 128/70 O2 Sat by Pulse 95 98 Oximetry 07/15/21 07/15/21 07/15/21 05:00 06:00 07:00 Temperature Pulse Rate 98 H 104 H 97 H Pulse Rate [ From Monitor] Respiratory 12 28 H 27 H Rate Blood Pressure 143/74 136/79 149/71 O2 Sat by Pulse 96 94 95 Oximetry 07/15/21 07/15/21 07/15/21 08:00 09:00 09:17 Temperature Pulse Rate 97 H 94 H Pulse Rate [ 97 H From Monitor] Respiratory 24 25 H Rate Blood Pressure 124/62 125/73 O2 Sat by Pulse 97 95 93 Oximetry 07/15/21 07/15/21 07/15/21 10:00 11:00 12:00 Temperature Pulse Rate 90 89 105 H Pulse Rate [ 105 H From Monitor] Respiratory 12 21 20 Rate Blood Pressure 121/60 119/68 135/88 O2 Sat by Pulse 95 93 96 Oximetry 07/15/21 07/15/21 13:00 13:26 Temperature Pulse Rate 114 H 104 H Pulse Rate [ From Monitor] Respiratory Rate Blood Pressure 136/59 O2 Sat by Pulse Oximetry CBC and BMP: 07/15/21 04:30 07/15/21 11:05 Abnormal lab findings: Abnormal Labs 07/14/21 07/14/21 07/14/21 04:22 04:58 04:58 WBC 14.3 H Seg Neuts % (Manual) Lymphocytes % (Manual) Seg Neutrophils # Man VBG pH Sodium 125 L Potassium Chloride 84.8 L Carbon Dioxide 11 L Glucose 432 H POC Glucose 436 H Hemoglobin A1c Calcium Phosphorus Albumin Urine WBC (Auto) 07/14/21 07/14/21 07/14/21 04:58 06:36 07:09 WBC Seg Neuts % (Manual) Lymphocytes % (Manual) Seg Neutrophils # Man VBG pH 7.287 L Sodium Potassium Chloride Carbon Dioxide Glucose POC Glucose Hemoglobin A1c 13.5 H Calcium Phosphorus Albumin Urine WBC (Auto) 59.0 H 07/14/21 07/14/21 07/14/21 07:09 07:09 08:43 WBC Seg Neuts % (Manual) Lymphocytes % (Manual) Seg Neutrophils # Man VBG pH Sodium 127 L 127 L 129 L Potassium 3.5 L Chloride 89.8 L 90.9 L 92.5 L Carbon Dioxide 14 L 11 L 10 L Glucose 348 H 340 H 333 H POC Glucose Hemoglobin A1c Calcium Phosphorus Albumin Urine WBC (Auto) 07/14/21 07/14/21 07/14/21 09:11 10:16 11:11 WBC Seg Neuts % (Manual) Lymphocytes % (Manual) Seg Neutrophils # Man VBG pH Sodium Potassium Chloride Carbon Dioxide Glucose POC Glucose 337 H 324 H 279 H Hemoglobin A1c Calcium Phosphorus Albumin Urine WBC (Auto) 07/14/21 07/14/21 07/14/21 12:19 13:06 15:28 WBC Seg Neuts % (Manual) Lymphocytes % (Manual) Seg Neutrophils # Man VBG pH Sodium Potassium Chloride Carbon Dioxide Glucose POC Glucose 289 H 262 H 258 H Hemoglobin A1c Calcium Phosphorus Albumin Urine WBC (Auto) 07/14/21 07/14/21 07/14/21 16:58 18:36 18:39 WBC Seg Neuts % (Manual) Lymphocytes % (Manual) Seg Neutrophils # Man VBG pH Sodium 128 L Potassium 3.4 L Chloride 97.8 L Carbon Dioxide 15 L Glucose 220 H POC Glucose 211 H 215 H Hemoglobin A1c Calcium 8.2 L Phosphorus 1.10 L D Albumin Urine WBC (Auto) 07/14/21 07/14/21 07/14/21 23:03 23:20 23:20 WBC Seg Neuts % (Manual) Lymphocytes % (Manual) Seg Neutrophils # Man VBG pH Sodium 130 L Potassium 3.4 L Chloride 97.5 L Carbon Dioxide 18 L Glucose 214 H POC Glucose 222 H Hemoglobin A1c Calcium 8.3 L Phosphorus 1.40 L D Albumin Urine WBC (Auto) 07/15/21 07/15/21 07/15/21 00:03 00:58 01:53 WBC Seg Neuts % (Manual) Lymphocytes % (Manual) Seg Neutrophils # Man VBG pH Sodium Potassium Chloride Carbon Dioxide Glucose POC Glucose 205 H 234 H 202 H Hemoglobin A1c Calcium Phosphorus Albumin Urine WBC (Auto) 07/15/21 07/15/21 07/15/21 03:02 03:59 04:30 WBC 12.0 H Seg Neuts % (Manual) 82.0 H Lymphocytes % (Manual) 11.0 L Seg Neutrophils # Man 9.8 H VBG pH Sodium Potassium Chloride Carbon Dioxide Glucose POC Glucose 192 H 201 H Hemoglobin A1c Calcium Phosphorus Albumin Urine WBC (Auto) 07/15/21 07/15/21 07/15/21 04:30 04:55 06:02 WBC Seg Neuts % (Manual) Lymphocytes % (Manual) Seg Neutrophils # Man VBG pH Sodium 132 L Potassium 3.2 L Chloride Carbon Dioxide 20 L Glucose 207 H POC Glucose 192 H 204 H Hemoglobin A1c Calcium 8.2 L Phosphorus 2.00 L D Albumin 2.8 L Urine WBC (Auto) 07/15/21 07/15/21 07/15/21 06:50 07:52 09:01 WBC Seg Neuts % (Manual) Lymphocytes % (Manual) Seg Neutrophils # Man VBG pH Sodium Potassium Chloride Carbon Dioxide Glucose POC Glucose 174 H 147 H 132 H Hemoglobin A1c Calcium Phosphorus Albumin Urine WBC (Auto) 07/15/21 07/15/21 09:11 11:05 WBC Seg Neuts % (Manual) Lymphocytes % (Manual) Seg Neutrophils # Man VBG pH Sodium 135 L 136 L Potassium 2.9 L* 3.3 L Chloride Carbon Dioxide 17 L Glucose 149 H 138 H POC Glucose Hemoglobin A1c Calcium 8.3 L Phosphorus 2.10 L Albumin Urine WBC (Auto)
[2021-07-15] MEDS ORDERED: INSULIN REGULAR, HUMAN 100 UNITS/1 ML SUB-Q SCH (14:30)
[2021-07-15] MEDS: INSULIN REGULAR, HUMAN 100 UNITS/1 ML SUB-Q SCH ×2 (16:14)
[2021-07-15] MEDS ORDERED: DOCUSATE SODIUM 100 MG CAP PO SCH (22:00)
[2021-07-15] MEDS ORDERED: SENNOSIDES 8.6 MG TAB PO SCH (22:00)
[2021-07-15] MEDS ORDERED: FAMOTIDINE 20 MG TAB PO SCH (22:00)
[2021-07-16] MEDS: HEPARIN 5,000 UNIT/1 ML VIAL SUB-Q SCH (00:19)
[2021-07-16] MEDS: CEFEPIME/NS 1 GM/100 ML 1 GM/100 ML BAG IV SCH ×2 (00:20→05:26)
[2021-07-16] MEDS: INSULIN REGULAR, HUMAN 100 UNITS/1 ML SUB-Q SCH ×3 (00:30→08:50)
[2021-07-16 04:44] VITALS: BP 121/64
[2021-07-16] MEDS: ACETAMINOPHEN 325 MG TAB PO PRN (05:23)
[2021-07-16 07:25] LABS: Hematocrit 43.8 % (35.5-45.6); Hemoglobin 14.6 gm/dl (11.8-15.2); Mean Corpuscular HGB Conc 33 % (32-34); Mean Corpuscular Volume 90 fl (84-94); Platelet Count 249 K/mm3 (140-440); Red Blood Count 4.87 M/mm3 (3.65-5.03); Red Cell Distribution Width 14.3 % (13.2-15.2)
[2021-07-16] MEDS ORDERED: INSULIN GLARGINE 100 UNITS/ML SUB-Q SCH (08:00)
[2021-07-16 08:37] LABS: BUN/Creatinine Ratio 13; Blood Urea Nitrogen 10 mg/dL (9-20); Calcium 9.1 mg/dL (8.4-10.2); Hemolysis Index 5
--- NOTE | 2021-07-16 09:16 | Discharge Summary ---
Providers - Providers Date of Admission: 07/14/21 08:02 Attending physician: DOLLY FRANKLIN MD 07/14/21 06:33 Consult to Physician [CONS] Urgent Comment: Dr. Valente spoke with Dr. 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 Patient with mild nausea and abdominal pain. Patient voiced that he might be constipated. Plan to transition to subQ insulin today if patient tolerate diet. BR regimen added for constipation, continue PRN antiemetic for N/V. Patient is also febrile this am, TMAX 101.9. Patient is still on emperic IV Abx for possible UTI, Leukocytosis improved and urine culture pending. Orders placed for blood cultures and continue IV Abx for now. Consider ID consult if fevers and leukocytosis persist. 07/16: Patient seen and examined, resting comfortable, he confirms that he may have been told about ROSA ELENA in the past and will follow up with his doctor on return home. He denies any fever, abdominal pain is improved back to his baseline. Patient this morning without any fever, discussed findings on imaging study and he will follow with urologist outpatient Diabetic education once again emphasized #DKA (diabetic ketoacidosis) #Metabolic Acidosis #Uncontrolled Diabetes Mellitus - Presented with elevated BG and metabolic acidosis - HgbA1C 13.5 - Non compliant with medications, ran out of insulin X2 weeks ago - DKA protcol was initiated - BG and Anion gap improved this am - Will transition to SubQ insulin - Consistent carb diet ordered - BG check and SSI ACHS - Monitor and replace electrolytes as needed - Monitor anion gap, serial Labs ordered - Diabetic education provided - Extensive conversation with patient on medication compliance and timing of medication considering his profession - [employer] consulted, appreciate recommendations #Chronic Abdominal Pain #Constipation #Nausea, no vomiting - Chronic history of abdominal pain which he says has been going on for years - CT abd/Pelvis with right nephrolithiasis, mild pyelocaliectasis in the superior calyces of the right kidney. Large right renal cyst. No ureteral stones are detected. - Most likely related to DKA versus nephrolithiasis - S/p multiple IVF boluses and IVF resuscitation per DKA protocol - Pain subsided this am, patient thinks he might also be constipated - Bowel regimen added - Continue PRN antiemetic for N/V - PRN analgesia for pain management #SIRS #Pyuria with Bacteriuria #Leukocytosis - UA remarkable with elevated WBCs, leukocytosis - CT Abd/Pelvis with right nephrolithiasis, no stones detected - Urine culture is pending - Febrile today with persistent leukocytsosis - Blood cultures ordered - Continue emperic IV Abx for now - F/U on cultures - Daily CBC monitor - Consider ID consult if fevers and leukocytosis persist #Hyponatremia #Hypokalemia - s/p IVF ressucitation - K repleted - Monitor and replace electrolytes as needed - Trend BMP, mag, and phosp Disposition: 01 HOME / SELF CARE / HOMELESS Final Discharge Diagnosis (Prints w/discharge instructions): DKA. SEPSIS Time spent for discharge: 35 mins Core Measure Documentation - Palliative Care Palliative Care/ Comfort Measures: Not Applicable - Core Measures Any of the following diagnoses?: none Exam - Physical Exam Narrative exam: VITAL SIGNS: Reviewed. GENERAL: The patient appears normally developed, Vital signs as documented. HEAD: No signs of head trauma. EYES: Pupils are equal. Extraocular motions intact. EARS: Hearing grossly intact. MOUTH: Oropharynx is normal. NECK: No adenopathy, no JVD. CHEST: Chest with clear breath sounds bilaterally. No wheezes, rales, or rhonchi. CARDIAC: Regular rate and rhythm. S1 and S2, without murmurs, gallops, or rubs. VASCULAR: No Edema. Peripheral pulses normal and equal in all extremities. ABDOMEN: Soft, large pannus, mild discomfort on palpation of the bilateral lower quadrant and non distended. No rebound or guarding, and no masses palpated. Bowel Sounds normal. MUSCULOSKELETAL: Good range of motion of all major joints. Extremities without clubbing, cyanosis or edema. NEUROLOGIC EXAM: Alert and oriented x 3 No focal sensory or strength deficits. Speech normal. Follows commands. PSYCHIATRIC: Mood normal. SKIN: detail exam as documented in skin assessment - Constitutional Vitals: Temp Pulse Resp BP Pulse Ox 98.9 F 96 H 16 121/64 93 07/16/21 04:25 07/16/21 04:25 07/16/21 04:25 07/16/21 04:25 07/16/21 04:25 Plan Activity: advance as tolerated, fall precautions Diet: diabetic Special Instructions: record daily weights, record daily BP diary, record blood sugar diary Plan of Treatment: MUST FOLLOW WITH PRIMARY DOCTOR FOR REFERRAL TO SLEEP STUDY Follow up with: [facility] [Referring] - 7 Days Prescriptions: hydroCHLOROthiazide [HCTZ] 25 mg PO QDAY #30 tablet Insulin Regular, Human [HumuLIN R] 0 unit SQ AC #1 vial cephALEXin [Keflex] 500 mg PO Q8HR #10 cap Insulin Glargine [Lantus VIAL] 35 units SUB-Q QAMDIAB #10 ml Other Discharge Orders: Glucometer (Amb) Location: None Selected Glucometer supplies[Amb] Location: None Selected
[2021-07-16] MEDS ORDERED: INSULIN REGULAR, HUMAN 100 UNITS/1 ML SUB-Q ONE (09:30)
[2021-07-16] MEDS ORDERED: POTASSIUM PHOSPHATE 30 MMOL in SODIUM CHLORIDE 0.9% 500 ML 500 ML IV ONE (10:00)
--- NOTE | 2021-07-18 13:48 | Electrocardiograph Report ---
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
--- NOTE | 2021-07-18 13:50 | Electrocardiograph Report ---
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
== END 2021-07-16 13:28 | disposition home or self-care (01) | DRG 871 ==
LOC: ED 21:53 → CC1 07-14 08:02 → 3A 07-15 18:54
PROVIDERS: ADMIT Internal Medicine; ATTEND Internal Medicine
DX: A41.9 Sepsis, unspecified organism (principal); E11.10 Type 2 diabetes mellitus with ketoacidosis without coma; E87.1 Hypo-osmolality and hyponatremia; E87.2 Acidosis; I10 Essential (primary) hypertension; E78.5 Hyperlipidemia, unspecified; E66.9 Obesity, unspecified; K59.00 Constipation, unspecified; E87.6 Hypokalemia; Z91.14 Patient's other noncompliance with medication regimen; Z79.899 Other long term (current) drug therapy; Z68.38 Body mass index [BMI] 38.0-38.9, adult
CPT/HCPCS: 36415; 71045; 74176; 80048; 80053; 81001; 82805; 82962; 83036; 83735; 84100; 84484; 85007; 85025; 85027; 87040; 87086; 93005; G0378; J3480; J3490; Q0162; Q9967; J0692; J1644; J1815; J2270; J2405; J7030; J7040